=== PATIENT | female | born 2005 | race Caucasian/White ===

== ENCOUNTER 2024-02-08 18:03 | Emergency (ER) | payer BC ==
[2024-02-08] MEDS: methylPREDNISolone Sodium Succinate 125 MG/2 ML SDV IVPUSH ONE (18:46)
== END 2024-02-08 19:46 ==
LOC: JD.ED 18:03
DX: T78.40XA Allergy, unspecified, initial encounter (principal); Z86.16 Personal history of COVID-19
CPT/HCPCS: 96374; 99283; J2930